=== PATIENT | female | born 1985 | race American Indian/Alaskan Native ===

== ENCOUNTER 2019-04-04 16:09 | Emergency (ER) | payer MEDICARE ==
--- NOTE | 2019-04-04 16:33 | Event Note ---
ED Screening Note Date of service: 04/04/19 Time: 16:32 ED Screening Note: 33 y/o female comes in for lump under left breast times 1 month. This initial assessment/diagnostic orders/clinical plan/treatment(s) is/are subject to change based on patients health status, clinical progression and re- assessment by fellow clinical providers in the ED. Further treatment and workup at subsequent clinical providers discretion. Patient/guardian urged not to elope from the ED as their condition may be serious if not clinically assessed and managed. Initial orders include:
[2019-04-04 16:34] VITALS: BP 121/84
[2019-04-04] MEDS ORDERED: IBUPROFEN PO ONE (16:44)
[2019-04-04] MEDS ORDERED: TYLENOL PO ONE (16:47)
[2019-04-04] MEDS ORDERED: TYLENOL ONE (16:47)
--- NOTE | 2019-04-04 17:41 | Emergency Department Report ---
- General Chief complaint: Skin/Abscess/Foreign Body Stated complaint: KNOT UNDER LT BREAST/PAINFULL Time Seen by Provider: 04/04/19 16:32 Source: patient Mode of arrival: Ambulatory Limitations: No Limitations - History of Present Illness Initial comments: Patient is a 33-year-old [place] female who has developed a "knot" on the left breast. Patient states she has had cysts in the breast in the past and been surgically removed. Patient states that over the last month she has some increased swelling of the face area of nodularity. Patient states over the last several days has been warmth and increased tenderness. She denies fevers chills nausea vomiting. Patient also states is been no dimpling of the skin of the breast or bloody or purulent nipple discharge. - Related Data Home Medications Medication Instructions Recorded Confirmed Last Taken Sertraline [Zoloft] 100 mg PO DAILY 10/19/13 09/12/14 09/12/14 08:00 Divalproex ER [Depakote ER] 500 mg PO BID 09/12/14 09/12/14 09/12/14 08:00 Previous Rx's Medication Instructions Recorded Last Taken Type DOXYCYCLINE Hyclate [Vibramycin 100 mg PO Q12H #20 capsule 09/12/14 Unknown Rx CAP] Pantoprazole [Protonix] 40 mg PO QDAY #30 tablet 09/12/14 Unknown Rx Ibuprofen [Motrin] 800 mg PO Q8HR PRN #60 tablet 08/10/15 Unknown Rx methOCARBAMOL [Robaxin TAB] 500 mg PO BID #10 tab 08/10/15 Unknown Rx traMADol [Ultram] 50 mg PO Q6HR PRN #14 tablet 08/10/15 Unknown Rx Clindamycin [Clindamycin CAP] 300 mg PO Q8H #21 cap 04/04/19 Unknown Rx Ibuprofen [Motrin 600 MG tab] 600 mg PO Q8H PRN #20 tablet 04/04/19 Unknown Rx Allergies Allergy/AdvReac Type Severity Reaction Status Date / Time No Known Allergies Allergy Verified 09/12/14 17:17 Abscess Boil HPI - HPI Chief Complaint: Skin/Abscess/Foreign Body Stated Complaint: KNOT UNDER LT BREAST/PAINFULL Time Seen by Provider: 04/04/19 16:32 Home Medications: Home Medications Medication Instructions Recorded Confirmed Last Taken Sertraline [Zoloft] 100 mg PO DAILY 10/19/13 09/12/14 09/12/14 08:00 Divalproex ER [Depakote ER] 500 mg PO BID 09/12/14 09/12/14 09/12/14 08:00 Previous Rx's Medication Instructions Recorded Last Taken Type DOXYCYCLINE Hyclate [Vibramycin 100 mg PO Q12H #20 capsule 09/12/14 Unknown Rx CAP] Pantoprazole [Protonix] 40 mg PO QDAY #30 tablet 09/12/14 Unknown Rx Ibuprofen [Motrin] 800 mg PO Q8HR PRN #60 tablet 08/10/15 Unknown Rx methOCARBAMOL [Robaxin TAB] 500 mg PO BID #10 tab 08/10/15 Unknown Rx traMADol [Ultram] 50 mg PO Q6HR PRN #14 tablet 08/10/15 Unknown Rx Clindamycin [Clindamycin CAP] 300 mg PO Q8H #21 cap 04/04/19 Unknown Rx Ibuprofen [Motrin 600 MG tab] 600 mg PO Q8H PRN #20 tablet 04/04/19 Unknown Rx Allergies/Adverse Reactions: Allergies Allergy/AdvReac Type Severity Reaction Status Date / Time No Known Allergies Allergy Verified 09/12/14 17:17 ED Review of Systems ROS: Stated complaint: KNOT UNDER LT BREAST/PAINFULL Other details as noted in HPI Comment: All other systems reviewed and negative ED Past Medical Hx - Past Medical History Previous Medical History?: Yes Hx Psychiatric Treatment: Yes (BIPOLAR) Hx Asthma: Yes ( A CHILD ONLY) - Surgical History Past Surgical History?: Yes Hx Breast Surgery: Yes (ABSCESS FROM BREAST X2) - Social History Smoking Status: Never Smoker Substance Use Type: None - Medications Home Medications: Home Medications Medication Instructions Recorded Confirmed Last Taken Type Sertraline [Zoloft] 100 mg PO DAILY 10/19/13 09/12/14 09/12/14 08:00 History DOXYCYCLINE Hyclate [Vibramycin 100 mg PO Q12H #20 capsule 09/12/14 Unknown Rx CAP] Divalproex ER [Depakote ER] 500 mg PO BID 09/12/14 09/12/14 09/12/14 08:00 History Pantoprazole [Protonix] 40 mg PO QDAY #30 tablet 09/12/14 Unknown Rx Ibuprofen [Motrin] 800 mg PO Q8HR PRN #60 tablet 08/10/15 Unknown Rx methOCARBAMOL [Robaxin TAB] 500 mg PO BID #10 tab 08/10/15 Unknown Rx traMADol [Ultram] 50 mg PO Q6HR PRN #14 tablet 08/10/15 Unknown Rx Clindamycin [Clindamycin CAP] 300 mg PO Q8H #21 cap 04/04/19 Unknown Rx Ibuprofen [Motrin 600 MG tab] 600 mg PO Q8H PRN #20 tablet 04/04/19 Unknown Rx ED Physical Exam - General Limitations: No Limitations General appearance: alert, in no apparent distress - Head Head exam: Present: atraumatic, normocephalic - Eye Eye exam: Present: normal appearance, PERRL, EOMI - ENT ENT exam: Present: mucous membranes moist - Neck Neck exam: Present: normal inspection - Respiratory Respiratory exam: Present: normal lung sounds bilaterally. Absent: respiratory distress, wheezes, rales, rhonchi - Cardiovascular Cardiovascular Exam: Present: regular rate, normal rhythm, normal heart sounds. Absent: systolic murmur, diastolic murmur, rubs, gallop - GI/Abdominal GI/Abdominal exam: Present: soft, normal bowel sounds. Absent: distended, tenderness, guarding, rebound - Extremities Exam Extremities exam: Present: normal inspection - Back Exam Back exam: Present: normal inspection - Neurological Exam Neurological exam: Present: alert, oriented X3 - Psychiatric Psychiatric exam: Present: normal affect, normal mood - Skin Skin exam: Present: warm, dry, intact, normal color, other. Absent: rash - Expanded Skin Exam Expanded 1 - quarter sized area of swelling and fluctuance with no overlying skin erythema under the left breast ED Course Vital Signs 04/04/19 04/04/19 04/04/19 16:28 16:48 16:54 Temperature 98.9 F Pulse Rate 99 H Respiratory 18 16 16 Rate Blood Pressure 121/84 O2 Sat by Pulse 100 Oximetry ED Medical Decision Making - Medical Decision Making Patient has a fluctuant area under the left breast. Patient was started on antibiotics but will be referred to breast surgery for definitive diagnosis. Critical care attestation.: If time is entered above; I have spent that time in minutes in the direct care of this critically ill patient, excluding procedure time. ED Disposition Clinical Impression: Breast mass Disposition: DC-01 TO HOME OR SELFCARE Is pt being admited?: No Does the pt Need Aspirin: No Condition: Stable Instructions: Breast Mass (ED) Referrals: MIRTHA BARNES MD [Staff Physician] - 3-5 Days Time of Disposition: 17:41
== END 2019-04-04 17:58 | disposition home or self-care (01) ==
LOC: ED 16:09
DX: N63.0 Unspecified lump in unspecified breast (principal); F31.9 Bipolar disorder, unspecified; J45.909 Unspecified asthma, uncomplicated; Z79.899 Other long term (current) drug therapy
CPT/HCPCS: 99282

== ENCOUNTER 2019-06-30 13:57 | Outpatient (CLI) | payer OTHER ==
--- NOTE | 2019-06-30 14:49 | Ultrasound Report ---
LEFT BREAST ULTRASOUND HISTORY: The patient presents for evaluation of an asymmetry in the left breast. COMPARISON: 06/25/2019 and 05/28/2019 mammograms FINDINGS: Sonographic evaluation focused upon the outer left breast. A cluster of tiny cysts at 12:00 8 cm from the nipple correlates with the mammographic density. The dominant cyst measures 5 mm and h as a comet tail shaped. This correlates well with the mammographic density. No solid mass or suspicio us shadowing. IMPRESSION: A cluster of benign cyst at 12:00 8 cm from the nipple which correlates well with the dain mographic asymmetry. No suspicious finding. RECOMMENDATION: Routine mammographic screening in one year. BIRADS 2: Benign Signer Name: Shreyas Castellano MD Signed: 06/30/2019 2:44 PM Workstation Name: [id number]
== END 2019-06-30 13:58 | disposition home or self-care (01) ==
LOC: SPVIMAG 13:57
PROVIDERS: ATTEND Surgery
DX: N60.02 Solitary cyst of left breast (principal)